=== PATIENT | male | born 1990 | race Hispanic/Latino ===

== ENCOUNTER 2017-09-01 20:04 | Emergency (ER) | payer SELFPAY ==
[2017-09-01 20:43] LABS: APPEARANCE,URINE Clear (CLEAR); BILIRUBIN,URINE Negative (NEGATIVE); COLOR,URINE Yellow (YELLOW); GLUCOSE, URINE (UA) Negative (NEGATIVE); KETONES,URINE Negative (NEGATIVE); LEUKOCYTE ESTERASE ,URINE Negative (NEGATIVE); NITRATE,URINE Negative (NEGATIVE); OCCULT BLOOD,URINE Negative (NEGATIVE); PH,URINE 6.5 (5.0-8.0); PROTEIN,URINE Negative (NEGATIVE)
[2017-09-01 21:14] LABS: RAPID GROUP A STREP NEGATIVE (NEGATIVE)
[2017-09-01] MEDS ORDERED: ACETAMINOPHEN 325 MG TAB ONE (23:28)
[2017-09-01 23:33] LABS: BASOPHILS % (AUTO) 1.3 % (0.0-5.0); EOSINOPHILS % (AUTO) 0.5 % (0.0-8.0); HEMATOCRIT 53.3 % (42-54); LYMPHOCYTES % (AUTO) 26.4 % (21.0-51.0); MEAN CORPUSCULAR HEMOGLOBIN 30.7 pg (27.0-33.0); MEAN CORPUSCULAR HGB CONC 34.9 g/dL (32.0-36.0); MEAN CORPUSCULAR VOLUME 87.8 fL (79-99); MONOCYTES % (AUTO) 12.6 % (3.0-13.0); NEUTROPHILS % (AUTO) 59.2 % (40.0-77.0); NUCLEATED RED BLOOD CELLS 0.2 % (0.0-0.19); PLATELET COUNT (AUTO) 252 K/uL (130-400); RED BLOOD CELL COUNT(AUTO) 6.07 MIL/uL (4.50-6.20); RED CELL DISTRIBUTION WIDTH 13.2 % (11.0-15.5); WHITE BLOOD COUNT (AUTO) 6.3 K/uL (4.8-10.8)
[2017-09-02 00:12] LABS: CREATININE 0.9 mg/dL (0.5-1.5); POTASSIUM 3.5 mmol/L (3.5-5.1)
== END 2017-09-02 00:20 | disposition home or self-care (01) ==
LOC: EDH 20:04
DX: R50.9 Fever, unspecified (principal); R05 Cough; R09.81 Nasal congestion; J02.9 Acute pharyngitis, unspecified
CPT/HCPCS: 36415; 80048; 81003; 85025; 87804; 87880

== ENCOUNTER 2017-12-03 22:23 | Emergency (ER) | payer OTHER ==
[2017-12-04] MEDS ORDERED: ACETAMINOPHEN EXTRA STRENGTH 500 MG TABLET ONE (01:12)
== END 2017-12-04 01:24 | disposition home or self-care (01) ==
LOC: EDH 22:23
DX: S06.0X1A Concussion with loss of consciousness of 30 minutes or less, initial encounter (principal); G44.309 Post-traumatic headache, unspecified, not intractable; Z90.5 Acquired absence of kidney; W22.8XXA Striking against or struck by other objects, initial encounter; Y93.64 Activity, baseball; Y92.39 Other specified sports and athletic area as the place of occurrence of the external cause; Y99.8 Other external cause status
CPT/HCPCS: 70450